=== PATIENT | male | born 1975 | race Caucasian/White ===

== ENCOUNTER 2021-08-03 10:45 | Day surgery (SDC) | payer BC ==
[~2021-08-03 10:45] MED LIST: Lactated Ringers 1,000 ML IV SCH; Lidocaine 1%/Sod Bicarbonate in NS 8.4% 1 ML Syringe IDERM PRN; Sodium Chloride 0.9% 10 ML Syringe FLUSH PRN; Sodium Chloride 0.9% 10 ML Syringe FLUSH SCH
[2021-08-03] MEDS ORDERED: Midazolam 1 MG/ML 2 ML SDV ONE (11:34)
[2021-08-03] MEDS ORDERED: fentaNYL 100 MCG/2 ML SDV ONE (11:35)
[2021-08-03] MEDS ORDERED: Lidocaine 1% 4 ML ONE (11:35)
[2021-08-03] MEDS ORDERED: Propofol 200 MG/20 ML SDV ONE ×2 (11:35→12:01)
[2021-08-03 14:02] VITALS: BP 98/58; PULSE 55
== END 2021-08-03 13:50 | disposition home or self-care (01) ==
LOC: JD.SDS 10:45
PROVIDERS: ATTEND Surgery
DX: Z12.11 Encounter for screening for malignant neoplasm of colon (principal); K57.10 Diverticulosis of small intestine without perforation or abscess without bleeding; K22.70 Barrett's esophagus without dysplasia; K57.30 Diverticulosis of large intestine without perforation or abscess without bleeding; K64.8 Other hemorrhoids; K31.7 Polyp of stomach and duodenum; F17.210 Nicotine dependence, cigarettes, uncomplicated; Z80.0 Family history of malignant neoplasm of digestive organs; Z79.899 Other long term (current) drug therapy; Z98.890 Other specified postprocedural states
CPT/HCPCS: J2250; J2704; J3010; J7120

== ENCOUNTER 2021-08-08 09:07 | Day surgery (SDC) | payer BC ==
[~2021-08-08 09:07] MED LIST changes: +Ketorolac 30 MG/ML SDV ONE; +Lidocaine 1% 6 ML ONE; +Ondansetron 4 MG/2 ML SDV ONE; +Propofol 200 MG/20 ML SDV ONE; +Rocuronium 50 MG/5 ML Vial ONE
[2021-08-08] MEDS ORDERED: Dexamethasone 4 MG/ML 5 ML MDV ONE (09:13)
[2021-08-08] MEDS ORDERED: fentaNYL 100 MCG/2 ML SDV ONE (09:17)
[2021-08-08] MEDS ORDERED: Midazolam 1 MG/ML 2 ML SDV ONE (09:17)
[2021-08-08] MEDS ORDERED: Rocuronium 50 MG/5 ML Vial ONE (09:29)
[2021-08-08] MEDS ORDERED: ceFAZolin 1 GM Vial ONE (09:36)
[2021-08-08] MEDS: Bupivacaine 0.5%/EPINEPHrine 1:200,000 50 ML MDV ONE ×2 (09:40→09:47)
[2021-08-08] MEDS ORDERED: HYDROmorphone 0.5 MG/0.5 ML Syringe ONE (09:58)
[2021-08-08 10:50] VITALS: BP 114/65; PULSE 44
== END 2021-08-08 11:15 | disposition home or self-care (01) ==
LOC: JD.SDS 09:07
PROVIDERS: ATTEND Surgery
DX: K42.9 Umbilical hernia without obstruction or gangrene (principal); F17.200 Nicotine dependence, unspecified, uncomplicated; Z80.0 Family history of malignant neoplasm of digestive organs; Z79.899 Other long term (current) drug therapy; Z98.890 Other specified postprocedural states
CPT/HCPCS: C1781; J0690; J1100; J1170; J1885; J2250; J2405; J2704; J2710; J3010; J3490; J7120